=== PATIENT | female | born 1995 | race African-American/Black ===

== ENCOUNTER 2021-10-10 14:21 | Emergency (ER) | payer OTHER, SELFPAY ==
[2021-10-10 14:33] VITALS: BP 113/73; PULSE 87; RESP 20; TEMP 37.2; O2SAT 98
--- NOTE | 2021-10-10 14:38 | ED.SKABFB ---
HPI - Skin/Abscess/Foreign Bdy General Chief complaint: Skin/Abscess/Foreign Body Stated complaint: left thumb/2nd digit finger swollen/bug bites Time Seen by Provider: 10/10/21 14:46 History of Present Illness HPI narrative: Yarely Jean Baptiste is a 25 yo female with no PMH who comes to express care with swollen 2 nd finger on L and bug bites on her arms hands and buttocks, she was at [employer] yesterday and does not know of another situation where she would have gotten these bites. Areas are pruritic, L 2nd finger swelling Related Data Home Medications Medication Instructions Recorded Confirmed phentermine 10/10/21 Allergies Allergy/AdvReac Type Severity Reaction Status Date / Time No Known Allergies Allergy Verified 10/10/21 14:40 Review of Systems Review of Systems: CONSTITUTIONAL: Denies fever, chills, sweats. EYES: Denies visual changes, redness, discharge. ENT: Denies rhinorrhea, congestion, sore throat, otalgia. CARDIOVASCULAR: Denies chest pain, palpitations, edema. RESPIRATORY: Denies dyspnea, wheezing, cough GASTROINTESTINAL: Denies abdominal pain, nausea, vomiting, diarrhea. GENITOURINARY: Denies dysuria, hematuria, abnormal discharge SKIN: Denies rash or itching.apparent insect bites to arms, hands, buttock NEUROLOGIC: Denies numbness, or focal weakness. PSYCHIATRIC: Denies anxiety or depression. Leg bites and arms left hand and buttocks PMFSH Social History Social History (Updated 10/10/21 @ 15:08 by Leslye Damon CNP) Smoking status: Never smoker Comments At time of signature, I agree with nursing past medical, surgical, social and family history. There is no relevant family history pertinent to the presenting complaint. Exam Narrative: GENERAL: This is a well-nourished, well-developed patient, in mild distress. HEAD: normocephalic, atraumatic. EYES: PERRL. Sclera clear/white. Vision is grossly intact. EARS: External ears normal, auditory canals clear and without drainage, TMs normal without perforation. Hearing grossly intact. NOSE: External nose normal without nasal discharge, nares without redness, no rhinorrhea. THROAT: Mucous membranes moist, posterior pharynx NECK: Neck supple, non-tender CARDIOVASCULAR: Regular rate and rhythm without murmurs, gallops, or rubs. RESPIRATORY: Clear to auscultation. Breath sounds equal bilaterally. No wheezes, rales, or rhonchi. GASTROINTESTINAL: Abdomen soft, non-tender, SKIN: warm, intact with pruritic small red lesions on left finger with swelling left to right hand both arms (and reported to be on buttocks) NEURO: awake, alert, and oriented to person, place and time. There were no obvious focal neurologic abnormalities. Steady gait EXTREMITIES: Normal range of motion. BACK: Nontender without deformity Course Course Emergency Course: Patient is here for bug bites to extremities Given prednisone 60 mg here Prednisone taper pack and zyrtec for home along with benadryl lotion Patient was to be discharged but left without papers are letting staff know she was leaving Level of Care: Express Care Visit Vital Signs Vital signs: Vital Signs Temperature 99.0 F 10/10/21 14:33 Pulse Rate 87 10/10/21 14:33 Respiratory Rate 20 10/10/21 14:33 Blood Pressure 113/73 10/10/21 14:33 Pulse Oximetry 98 10/10/21 14:33 Oxygen Delivery Room Air 10/10/21 14:33 Temperature 99.0 F 10/10/21 14:33 Pulse Rate 87 10/10/21 14:33 Respiratory Rate 20 10/10/21 14:33 Blood Pressure 113/73 10/10/21 14:33 Pulse Oximetry 98 10/10/21 14:33 Oxygen Delivery Room Air 10/10/21 14:33 MDM - Skin/Abscess/Foreign Bdy Differential Diagnosis Differential diagnosis: Likely abscess of skin or subcutaneous tissue, allergic reaction to drug, cellulitis, eczema and contact dermatitis Critical Care Time Critical Care Time Critical Care Time: No Discharge Plan Discharge Clinical Impression: Insect bites Patient Disposition: Home,
[2021-10-10] MEDS: predniSONE 20 MG TABLET 60 MG PO (15:03)
== END 2021-10-10 15:28 | disposition home or self-care (01) ==
PROVIDERS: Emergency Provider Nurse Practitioner
DX: S60.461A Insect bite (nonvenomous) of left index finger, initial encounter (principal); S60.561A Insect bite (nonvenomous) of right hand, initial encounter; S40.862A Insect bite (nonvenomous) of left upper arm, initial encounter; S40.861A Insect bite (nonvenomous) of right upper arm, initial encounter; W57.XXXA Bitten or stung by nonvenomous insect and other nonvenomous arthropods, initial encounter
CPT/HCPCS: 99203; G0463; J7512